=== PATIENT | female | born 1940 | race Caucasian/White ===

== ENCOUNTER → 2016-09-26 | Day surgery (SDC) | payer MEDICARE ==
[~2016-09-26] MED LIST: ASPIRIN81 M2 PO; ATENOLOL50 MG PO; B COMPLEX1 EACH PO; GABAPENTIN300 M2 PO; GLIPIZIDE10 MG PO; JANUMET 50-1,01 EACH PO; LISINOPRIL10 MG PO; OMEPRAZOLE40 M1 PO; OXYCODON-ACETA1 EAC1 PO; PRAVASTATIN SOD20 MG PO; SYNTHROID125 PO; VIT B COMPLEX; ZOLOFT100 MG PO; ZYLOPRIM100 MG PO
--- NOTE | ~2016-09-26 | OR ---
Unit #: [id number] #: [id number] Patient: EVA GORDON [id number] [address] [address] [id number] O MR#: [id number] NAME: EVA GORDON ROOM: Date of Procedure: 09/26/2016 Admission Date: 09/26/2016 Surgeon: Ladarius York M.D. : 1940 Attending Physician: Danny York [facility] OPERATIVE NOTE PROCEDURE PERFORMED Lumbar epidural steroid injection under x-ray guided needle placement with provider administered conscious sedation. PREOPERATIVE DIAGNOSES 1. Acute lumbar radiculitis. 2. Spinal stenosis, lumbosacral spine. 3. Herniated disk, L1-L2. 4. Listhesis, L3-L4. 5. Listhesis, L4-L5. 6. Facet arthrosis, multiple levels. 7. Degenerative joint disease, lumbosacral spine. 8. Degenerative disk disease, lumbosacral spine. INDICATIONS FOR PROCEDURE The patient presents today with approximately 8-month long history of crescendo pattern lumbar radicular pain right greater than left and has failed to respond to conservative measures, which have include medication and self-directed physical activity. The patient's pain is advancing in a crescendo pattern and has begun to negatively impact her activities of daily living. After discussing risks and benefits of proceeding today with a lumbar approach epidural steroid injection utilizing dual needle access technique, the patient agreed this would be the appropriate course of action. DESCRIPTION OF PROCEDURE She was then taken to the operating room, where she was prepped and draped in a sterile manner. Standard monitors were applied. She was sedated initially with 2 mg of IV Versed and required an additional 2 mg of IV Versed and 2 mL of IV fentanyl throughout the duration of the procedure. Lumbar epidural space accessed with these at the L1-L2 level using loss of resistance technique and x-ray guidance. Needle placement was confirmed with injection of 2 mL of Omnipaque and dye flow was mostly in the superior direction. Following this, subsequent attempts were made to access the lumbar epidural space at the L3-L4, L4-L5, ultimately succeeding at the L5-S1 using again loss of resistance technique and x-ray guidance. Again, x-ray placement was confirmed with injection of 2 mL of Omnipaque. There was good superior and inferior flow at this L5-S1 needle placement. Following successful needle placement, the patient received injectate containing 4 mL normal saline and 80 mg of methylprednisolone at each of the injected levels for total injectate volume of 8 mL normal saline and 80 mg of methylprednisolone. She tolerated this procedure well. She was discharged home with followup instructions. Her next Unit #: [id number] #: [id number] Patient: EVA GORDON return visit is on 10/24/2016. At that visit, we will most likely attempt to place a L3-L4 epidural steroid injection with the patient in the seated position. Dictated by... Stoney Knowles/lamberto TD: 09/26/2016 16:28 JOB #: [id number] CC: Tramaine Shelton M.D. [facility] OPERATIVE NOTE Page 1 of 1 X Danny oYrk MD X PROCEDURE OPERATIVE NOTE
== END | disposition home or self-care (01) ==
LOC: CCSC 13:28
DX: G89.29 Other chronic pain (principal); M51.17 Intervertebral disc disorders with radiculopathy, lumbosacral region; M51.16 Intervertebral disc disorders with radiculopathy, lumbar region; M48.07 Spinal stenosis, lumbosacral region; M47.27 Other spondylosis with radiculopathy, lumbosacral region; M43.16 Spondylolisthesis, lumbar region; E03.9 Hypothyroidism, unspecified; F17.210 Nicotine dependence, cigarettes, uncomplicated; Z88.7 Allergy status to serum and vaccine; Z79.82 Long term (current) use of aspirin; Z79.891 Long term (current) use of opiate analgesic; Z79.899 Other long term (current) drug therapy; Z90.710 Acquired absence of both cervix and uterus; Z90.721 Acquired absence of ovaries, unilateral; Z98.890 Other specified postprocedural states
CPT/HCPCS: 82947; J1040; J2250; J3010

== ENCOUNTER → 2016-10-24 | Day surgery (SDC) | payer MEDICARE ==
--- NOTE | ~2016-10-24 | OR ---
Unit #: [id number] #: [id number] Patient: EVA GORDON [id number] [address] [address] [id number] O MR#: [id number] NAME: EVA GORDON ROOM: Date of Procedure: 10/24/2016 Admission Date: 10/24/2016 Surgeon: Ladarius York M.D. : 1940 Attending Physician: Danny York Primary Care Physician: Tramaine Shelton M.D. [facility] OPERATIVE NOTE PROCEDURE PERFORMED Lumbar epidural steroid injection under x-ray guided needle placement with provider administered conscious sedation. PREOPERATIVE DIAGNOSES 1. Acute lumbar radiculitis. 2. Spinal stenosis, lumbosacral spine. 3. Multiple levels herniated disk, lumbosacral spine. 4. Degenerative joint disease, lumbosacral spine. 5. Degenerative disk disease, lumbosacral spine. 6. Facet arthrosis, lumbosacral spine. INDICATIONS FOR PROCEDURE The patient presents today status post one previous lumbar approach epidural steroid injection for an acute radiculitis, which had failed to respond to conservative therapy. She states she got very little relief with the initial epidural steroid injection and what relief she got was not consistent as she did have some return of her symptoms. After discussing the risks and benefits of proceeding today with second lumbar approach epidural steroid injection at a different level, the patient agreed this would be the appropriate course of action. She was also scheduled for long-term followup on 02/01/2017 as well as referral to [facility] for potential radiofrequency ablation of her chronic facet arthralgia pain. DESCRIPTION OF PROCEDURE Following these discussions, the patient was taken to the operating room where she was prepped draped in a sterile manner. Standard monitors were applied. She was sedated with 1 mg of IV Versed and initial attempts at epidural access in the sitting position was unsuccessful. She was then placed in the prone position and given an additional 1 mg of IV Versed and accessed. A second sterile prep and drape was accomplished and the L3-L4 interspace was accessed using loss of resistance technique and x-ray guidance. Needle placement was confirmed with injection of 2 mL of Omnipaque. There was good superior and inferior flow at this L3-L4 placed needle. Following successful needle placement confirmation, the patient received an injectate containing 4 mL normal saline and 80 mg of methylprednisolone. She tolerated this procedure well. She was discharged home with followup instructions, which are described above. Dictated by... Ladarius York M.D. Unit #: [id number] #: [id number] Patient: EVA GORDON/jonl TD: 10/24/2016 15:27 JOB #: [id number] [facility] OPERATIVE NOTE Page 1 of 1 X Danny York MD X PROCEDURE OPERATIVE NOTE
== END | disposition home or self-care (01) ==
LOC: CCSC 12:34
DX: G89.29 Other chronic pain (principal); M51.17 Intervertebral disc disorders with radiculopathy, lumbosacral region; M47.27 Other spondylosis with radiculopathy, lumbosacral region; M48.07 Spinal stenosis, lumbosacral region; E03.9 Hypothyroidism, unspecified; N18.1 Chronic kidney disease, stage 1; F17.210 Nicotine dependence, cigarettes, uncomplicated; Z88.7 Allergy status to serum and vaccine; Z79.82 Long term (current) use of aspirin; Z79.891 Long term (current) use of opiate analgesic; Z79.899 Other long term (current) drug therapy; Z90.710 Acquired absence of both cervix and uterus; Z90.721 Acquired absence of ovaries, unilateral; Z98.890 Other specified postprocedural states
CPT/HCPCS: J1040; J2250